=== PATIENT | female | born 2000 ===

== ENCOUNTER → 2020-06-10 | Outpatient (CLI) | payer OTHER ==
[2020-06-12 15:11] LABS: SOURCE: ENDOCERVIX; TEST ORDERED: PAP LIQ-BASED
== END | disposition home or self-care (01) ==
LOC: LAB 19:18
PROVIDERS: Nurse Practitioner
DX: Z12.4 Encounter for screening for malignant neoplasm of cervix (principal)
CPT/HCPCS: 88142